=== PATIENT | male | born 1955 | race Caucasian/White ===

== ENCOUNTER 2019-12-08 12:40 | Outpatient (CLI) | payer OTHER | END 2019-12-08 13:13 | disposition home or self-care (01) | LOC: LAB 12:40 | DX: K59.09 Other constipation (principal); K62.5 Hemorrhage of anus and rectum; K62.2 Anal prolapse ==

== ENCOUNTER 2019-12-17 07:58 | Day surgery (SDC) | payer OTHER | END 2019-12-17 12:55 | disposition home or self-care (01) | LOC: AMB-ENDOS 07:58 | DX: C20 Malignant neoplasm of rectum (principal) ==